=== PATIENT | female | born 1965 | race Two or more races ===

== ENCOUNTER 2020-01-27 14:40 | Outpatient (CLI) | payer OTHER ==
[~2020-01-27] VITALS: Ht 152.4 cm; Wt 59.0 kg
[~2020-01-27 14:40] MED LIST: AMBIEN10 MG PO; CLONAZEPAM0.5 MG PO; PERCOCET 5/3251 TAB PO; RAMIPRIL5 MG PO; RECTICARE30 GM TP
== END 2020-01-27 16:35 | disposition home or self-care (01) ==
LOC: OFIC 805 14:40
PROVIDERS: ATTEND Otolaryngology
DX: M54.2 Cervicalgia (principal); K21.9 Gastro-esophageal reflux disease without esophagitis; R49.0 Dysphonia